=== PATIENT | male | born 1980 | race African-American/Black ===

== ENCOUNTER 2019-03-01 16:37 | Emergency (ER) | payer SELFPAY ==
[~2019-03-01] VITALS: Ht 177.8 cm; Wt 90.0 kg
[2019-03-02 02:10] VITALS: BP 162/80
== END 2019-03-02 02:59 | disposition left against medical advice (07) ==
LOC: ER 16:37
DX: M79.18 Myalgia, other site (principal); F17.290 Nicotine dependence, other tobacco product, uncomplicated; I10 Essential (primary) hypertension
CPT/HCPCS: 99283